=== PATIENT | male | born 1975 | race African-American/Black ===

== ENCOUNTER 2017-12-08 06:30 | Emergency (ER) | payer SELFPAY ==
[~2017-12-08] VITALS: Ht 170.2 cm; Wt 87.0 kg
[2017-12-08 07:08] LABS: BASOPHILS % 0.9 % (0.0-2.0); EOSINOPHILS % 0.5 % (0.0-5.0); HEMATOCRIT. 40.8 % (42.0-52.0); LYMPHOCYTES % 25.2 % (20.0-50.0); MEAN CORPUSCULAR VOLUME 98.8 fL (80.0-94.0); MEAN PLATELET VOLUME 7.7 fl (7.4-10.4); MONOCYTES % 10.9 % (2.0-8.0); NEUTROPHILS % 62.5 % (40.0-76.0); PLATELET 279 x1000/uL (130-400); RED BLOOD CELL COUNT 4.13 mill/uL (4.7-6.1); RED CELL DISTRIBUTION WIDTH 13.3 % (11.6-14.6)
[2017-12-08 07:15] LABS: CHLORIDE 108 mEq/L (98-107)
[2017-12-08 07:21] LABS: ETHANOL BLOOD 22 mg/dL
[2017-12-08 07:36] VITALS: BP 131/83
== END 2017-12-08 07:36 | disposition home or self-care (01) ==
LOC: ER 06:30
DX: R07.9 Chest pain, unspecified (principal); F10.10 Alcohol abuse, uncomplicated; F12.10 Cannabis abuse, uncomplicated; Z72.0 Tobacco use; F17.210 Nicotine dependence, cigarettes, uncomplicated; Z95.0 Presence of cardiac pacemaker
CPT/HCPCS: 36415; 71045; 80053; 83880; 84484; 85025; 93005; 99285; 99406; G0482

== ENCOUNTER 2018-07-17 16:04 | Emergency (ER) | payer MEDICAID ==
[~2018-07-17] VITALS: Ht 170.2 cm; Wt 82.0 kg
[2018-07-17] MEDS ORDERED: SODIUM CHLORIDE 0.9% 1000ML BAG (SEPSIS BOLUS) IV ONE (17:00)
[2018-07-17 17:15] LABS: BASOPHILS % 0.8 % (0.0-2.0); EOSINOPHILS % 0.5 % (0.0-5.0); HEMATOCRIT. 41.2 % (42.0-52.0); HEMOGLOBIN. 14.4 g/dL (14.0-18.0); LYMPHOCYTES % 19.9 % (20.0-50.0); MEAN CORPUSCULAR VOLUME 97.2 fL (80.0-94.0); MEAN PLATELET VOLUME 7.8 fl (7.4-10.4); MONOCYTES % 11.5 % (2.0-8.0); NEUTROPHILS % 67.3 % (40.0-76.0); PLATELET 304 x1000/uL (130-400); RED BLOOD CELL COUNT 4.24 mill/uL (4.7-6.1); RED CELL DISTRIBUTION WIDTH 13.5 % (11.6-14.6)
[2018-07-17 17:19] LABS: CHLORIDE 108 mEq/L (98-107)
[2018-07-17] MEDS ORDERED: KETOROLAC 60MG/2ML VIAL IM ONE (18:30)
[2018-07-17 18:41] VITALS: BP 132/102
[2018-07-17] MEDS ORDERED: KETOROLAC 30MG/ML VIAL IV ONE (18:45)
== END 2018-07-17 19:18 | disposition left against medical advice (07) ==
LOC: ER 16:04
DX: R07.89 Other chest pain (principal); R06.02 Shortness of breath; F17.200 Nicotine dependence, unspecified, uncomplicated; E87.6 Hypokalemia; E87.8 Other disorders of electrolyte and fluid balance, not elsewhere classified; Z87.09 Personal history of other diseases of the respiratory system; Z95.0 Presence of cardiac pacemaker
CPT/HCPCS: 36415; 71045; 80053; 83605; 83735; 83880; 84484; 85025; 87040; 93005; 96374; 99284; J7030

== ENCOUNTER 2018-08-09 00:26 | Emergency (ER) | payer MEDICAID ==
[~2018-08-09] VITALS: Ht 172.7 cm; Wt 84.0 kg
[2018-08-09] MEDS ORDERED: SODIUM CHLORIDE 0.9% 1,000 ML IV ONE (02:00)
[2018-08-09] MEDS ORDERED: ONDANSETRON HCL 4MG/2ML INJ IV ONE (02:00)
[2018-08-09] MEDS ORDERED: KETOROLAC 15MG/ML VIAL IV ONE (02:00)
[2018-08-09] MEDS ORDERED: PROCHLORPERAZINE 10MG/2ML VIAL IM ONE (03:15)
[2018-08-09 04:44] VITALS: BP 105/54
== END 2018-08-09 04:46 | disposition home or self-care (01) ==
LOC: ER 00:26
DX: G43.909 Migraine, unspecified, not intractable, without status migrainosus (principal)
CPT/HCPCS: 96361; 96372; 96374; 96375; 99283; J0780; J1885; J2405; J7030; Z7610